=== PATIENT | female | born 1985 | race Caucasian/White ===

== ENCOUNTER 2017-12-31 15:01 | Emergency (ER) | payer OTHER ==
[~2017-12-31] VITALS: Ht 167.6 cm; Wt 90.7 kg
--- NOTE | ~2017-12-31 | EKG ---
[place] [address] [facility] [place] [address] ELECTROCARDIOGRAM REPORT Name: MANISH REYES Room #: [facility]#: [id number] Admission: 12/31/17 Attend Phys: Discharge: 12/31/17 Date of : 83 Report #: [id number] THIS REPORT FOR: //name// [facility] ED Test Date: 2017-12-31 Test Time: 15:49:13 Pat Name: MANISH REYES Department: Room: Gender: F Music Adapter: as : 1985 Requested By: Milton Bagley Order Number: [id number] MD: Aime Jaffe Measurements Intervals [place] Rate: 63 P: 74 ND: 162 QRS: 48 QRSD: 108 T: 40 QT: 414 QTc: 424 Interpretive Statements Sinus rhythm Low voltage, precordial leads RSR' in V1 or V2, right VCD or RVH No previous ECG available for comparison Electronically Signed On 01-02-2018 17:30:04 CDT by Aime Jaffe [email or web address] <ELECTRONICALLY SIGNED> By: Aime Jaffe MD 01/02/18 1730 1549 [id number] Aime Jaffe MD /JOSE RAMON
[~2017-12-31 15:01] MED LIST: HYDROCODONE-AP1 EAC6 PO; TRINATE TABLET1 TAB PO; VENTOLIN HFA 1818 GM INH; ZPAK PO
[2017-12-31 15:43] LABS: HEMATOCRIT 39.4 % (37.0-47.0); HEMOGLOBIN 14.2 gm/dL (12.0-15.0); MCH 31.2 pg (26.0-34.0); MCHC 36.1 g/dL (28.0-37.0); MCV 86.6 fL (80.0-100.0); PLATELET COUNT 224 thou/uL (150-400); RBC 4.55 mil/uL (4.20-5.00); RDW 12.7 % (10.5-14.5); WBC 8.3 thou/uL (4.0-11.0)
[2017-12-31 15:49] LABS: CALCIUM 9.6 mg/dL (8.5-10.1); CREATININE 0.8 mg/dL (0.6-1.0); POTASSIUM 3.7 mmol/L (3.5-5.1)
[2017-12-31 15:55] LABS: ALBUMIN 4.5 g/dL (3.4-5.0); MAGNESIUM 2.3 mg/dL (1.8-2.4); TOTAL BILIRUBIN 0.6 mg/dL (<0.1-1.0); TOTAL PROTEIN 8.5 g/dL (6.4-8.2)
[2017-12-31 16:09] LABS: ABSOLUTE NEUTROPHILS 2.8 thou/uL (1.4-8.2)
[2017-12-31 16:59] LABS: URINE BILIRUBIN NEGATIVE (Negative); URINE BLOOD NEGATIVE (Negative); URINE CLARITY CLEAR; URINE COLOR YELLOW; URINE GLUCOSE-RANDOM* NEGATIVE (Negative); URINE KETONES NEGATIVE (Negative); URINE LEUKOCYTES-REFLEX NEGATIVE (Negative); URINE NITRITE-REFLEX NEGATIVE (Negative); URINE PROTEIN (DIPSTICK) NEGATIVE (Negative); URINE SPECIFIC GRAVITY <= 1.005 (1.005-1.035); URINE UROBILINOGEN 0.2 E.U./dl (0.2-1.0)
[2017-12-31 18:08] VITALS: BP 122/74
== END 2017-12-31 18:10 | disposition home or self-care (01) ==
LOC: ER 15:01
PROVIDERS: Physician Assistant
DX: R53.83 Other fatigue (principal); R20.2 Paresthesia of skin